=== PATIENT | male | born 1980 | race Caucasian/White ===

== ENCOUNTER 2017-07-05 14:58 | Emergency (ER) | payer SELFPAY ==
[~2017-07-05] VITALS: Ht 170.2 cm; Wt 77.3 kg
[2017-07-05 15:02] VITALS: BP 153/90; PULSE 97; RESP 16; O2SAT 99
[2017-07-05] MEDS ORDERED: Ondansetron 8 mg ODT Tablet ONE (15:05)
[2017-07-05 16:08] LABS: BASOPHILS % (AUTO) 0.4 % (0-3); MONOCYTES % (AUTO) 8.4 % (4-12); Mean Corpuscular Hemoglobin 32.4 pg (27.0-35.0); Mean Corpuscular Volume 95.7 fL (81-100); NEUTROPHILS % (AUTO) 57.5 % (40-74); Platelet Count 208 bil/L (150-400)
[2017-07-05 16:42] LABS: Magnesium 1.9 mg/dL (1.6-2.6)
[2017-07-05 16:47] LABS: TROPONIN T < 0.010 ug/L (0.0-0.011)
[2017-07-05] MEDS ORDERED: LidocaineVisc 2%:Antacid 1:1 10 mL Syringe PO ONE (17:10)
--- NOTE | 2017-07-05 17:57 | ED.REPORT ---
HPI-Chest Pain Under 40 Date of Service Jul 05, 2017 ED Provider: Trent Gonzalez DO A 37 year old male with no pertinent medical history presents to the ED complaining of heart palpitations that began this morning. His symptoms are exacerbated by standing up. He admits to drinking a significant amount of alcohol last night after a recent 15 day period of sobriety. Associated symptoms include headache,dizziness, lightheadedness, "heartburn", nausea and vomiting. The patient denies decreased fluid intake. He denies any recent injuries. Patient denies any recent fever, chills, shortness of breath or chest pain. Nursing Notes Stated Complaint: CHEST PAIN Chief Complaint: General Complaint Nursing Notes Reviewed: Yes Allergies: Coded Allergies: cephalexin (Verified Allergy, Intermediate, rash, 07/05/17) General Time Seen by MD: 17:59 Chief Complaint Other (Heart palpitations) Hx Obtained From: Patient Arrived By: Walk-in Sudden in Onset?: No Onset Occurred: 5 - 8 hours ago Symptom Duration: Since onset Associated with: Reports: Dizziness, Lightheaded, Nausea, Vomiting, Denies: Fever Pertinent Negative: Pt denies other symptoms Exacerbated by: Movement (standing) Recent Healthcare: No recent doctor visit, No recent hospitalization Similar Sx Previous: Yes Past Medical History Past Medical History None reported. Past Surgical History None reported. Smoking History Unknown if Ever Smoker Social History Alcohol Use: 1-3 per day Other Social History: Local resident Ambulatory Status Independent Review of Systems Denies decreased fluid intake Constitutional: Denies: Chills, Fever Respiratory: Denies: Shortness of breath Cardiovascular: Reports: Palpitations, Denies: Chest pain GI: Reports: Nausea, Vomiting Neurologic: Reports: Dizziness, Lightheaded Complete sys rev & neg: except as marked. Physical Exam Initial Vital Signs Vital Signs (First) Date Time Temp Pulse Resp B/P Pulse Ox O2 Delivery O2 Flow Rate FiO2 07/05/17 15:02 37.1 97 16 153/90 99 Room Air Initial VS: Reviewed Head / Eyes: Atraumatic, Normocephalic, PERRL Neck: Supple, Non-tender, Full range of motion Extremities: Vascular intact, Neuro intact, No swelling, No tenderness Skin: Warm, Dry, No cyanosis Psychiatric: Mood/affect normal, Behavior normal, Normal thought content General/Constitutional: Awake, Alert, No acute distress, Well developed Respiratory / Chest: Atraumatic, Breath sounds NL, Breath sounds = bilat, No respiratory distress Cardiovascular: Heart rate NL, Regular rhythm, Heart sounds NL Abdomen: Atraumatic, Soft Neurologic: Oriented X3, Speech NL, No motor deficits, No sensory deficits, CN II - XII intact, Reflexes equal bilat, Gait NL (Ambulated with steady gait) Interpretation & Diagnostics Lab Results Interpretation Result Diagram: 07/05/17 1600 07/05/17 1600 Test 07/05/17 16:00 White Blood Count 7.1th/mm3 (3.8-10.1) Red Blood Count 4.87mil/mm3 (4.40-5.80) Hemoglobin 15.8g/dL (13.8-17.2) Hematocrit 46.6% (41.0-50.0) Mean Corpuscular Volume 95.7fL (81-100) Mean Corpuscular Hemoglobin 32.4pg (27.0-35.0) Mean Corpuscular Hemoglobin Concent 33.9% (32.0-37.0) Red Cell Distribution Width 12.9% (12.3-15.4) Platelet Count 208bil/L (150-400) Neutrophils (%) (Auto) 57.5% (40-74) Lymphocytes (%) (Auto) 31.6% (14-46) Monocytes (%) (Auto) 8.4% (4-12) Eosinophils (%) (Auto) 2.0% (0-5) Basophils (%) (Auto) 0.4% (0-3) Sodium Level 139mEq/L (134-144) Potassium Level 4.1mEq/L (3.5-5.2) Chloride Level 96mEq/L (97-108) Carbon Dioxide Level 23mmol/L (18-29) Blood Urea Nitrogen 14mg/dL (6-20) Creatinine 0.63mg/dL (0.76-1.27) Estimat Glomerular Filtration Rate 151mL/min (>59) Glucose Level 96mg/dL (60-99) Calcium Level 9.1mg/dL (8.5-10.1) Magnesium Level 1.9mg/dL (1.6-2.6) Total Bilirubin 0.3mg/dL (0.0-1.2) Aspartate Amino Transf (AST/SGOT) 30U/L (0-50) Alanine Aminotransferase (ALT/SGPT) 45U/L (0-44) Alkaline Phosphatase 71U/L (25-150) Troponin T < 0.010ug/L (0.0-0.011) Total Protein 8.1g/dL (6.4-8.4) Albumin 4.8g/dL (3.4-5.0) ECG Interpretation ECG Interpretation: Normal sinus rhythm Rate 83 bpm Time: 18:00 Interpreted by: ED physician Re-Eval/Medical Decision Med Decision/Clinical Course No obvious life-threatening injuries or pathology identified, ambulatory with a steady gait. Suspect symptoms may be related to yesterdays heavy alcohol use. Return and follow-up precautions given. Re-Evaluation/Progress : Time of Eval: 18:11 Patient Status: Condition improved Re-Evaluation/Progress Note: Upon recheck, the patient's symptoms have improved. He is informed of his results and the intended treatment plan. All questions are addressed at this time and he is agreeable to the current plan. Counseled Regarding: Diagnosis, Lab results, Need for follow-up, When/why to return to ED Discharge & Departure Primary Impression: Lightheadedness Additional Impression: Alcohol abuse Disposition: Home Discharge Condition All VS Reviewed: Yes Condition: Improved Patient Instructions: Heart Palpitations (ED), Lightheadedness (ED) Additional Instructions: Thank you for trusting us with your care this evening. Your emergency department evaluation today including examination, lab work and EKG are reassuring that there is no emergent cause for concern at this time. Make sure to drink plenty of fluids. Schedule a follow up appointment with your primary care physician in the next 1- 2 days for a recheck. Take 1-2 200 mg of ibuprofen every 4-6 hours as needed for pain. Please return to the emergency department for any new or worsening symptoms including any chest pain, nausea, vomiting, shortness of breath, weakness, numbness/tingling in the arm, or any other symptoms of concern to you. Referrals: [facility]CP (PCP) Yuliet Dhillon Attestation Portions of this note were transcribed by Elisa Hinds. I, Dr. Samir Cooper personally performed the history, physical exam and medical decision-making; I reviewed and confirmed the accuracy of the information in the transcribed note. Signed by John Fisher, 07/05/17. Trent Gonzalez DO Jul 05, 2017 17:57 ELISA HINDS Jul 05, 2017 18:05
[2017-07-05 18:55] VITALS: BP 145/79; PULSE 107; RESP 18; O2SAT 97
== END 2017-07-05 18:56 | disposition home or self-care (01) ==
LOC: SED 14:58
DX: R42 Dizziness and giddiness (principal); F10.10 Alcohol abuse, uncomplicated; Z88.1 Allergy status to other antibiotic agents